=== PATIENT | female | born 2000 ===

== ENCOUNTER 2021-01-23 17:51 | Outpatient (REF) | payer OTHER, SELFPAY ==
[2021-01-23 18:37] LABS: Alanine Aminotransferase 18 U/L (0-31); Albumin Level 4.1 g/dL (3.5-5.0); Alkaline Phosphatase 84 U/L (39-117); Anion Gap 15 (12-20); Aspartate Amino Transferase 17 U/L (5-31); Bilirubin Total 0.5 mg/dL (0.0-1.0); Blood Urea Nitrogen 16 mg/dL (9-16); Calcium 9.1 mg/dL (8.4-10.2); Carbon Dioxide 24 mmol/L (22-29); Chloride 105 mmol/L (96-108); Estimated Glomerular Filt Rate > 60; Glucose Random 70 mg/dL (60-115); Magnesium 1.9 mg/dL (1.6-2.6); Phosphorus 3.8 mg/dL (2.7-4.5); Potassium 4.3 mmol/L (3.3-5.1); Sodium 140 mmol/L (135-145)
[2021-01-23 18:57] LABS: Thyroid Stimulating Hormone 0.57 uIU/mL (0.32-4.0)
== END 2021-01-23 17:52 | disposition home or self-care (01) ==
LOC: HO.LNP 17:51
PROVIDERS: Visit Provider Surgery
DX: Z13.89 Encounter for screening for other disorder (principal)
CPT/HCPCS: 80053; 83735; 84100; 84134; 84443